=== PATIENT | female | born 1970 | race Caucasian/White ===

== ENCOUNTER → 2018-08-23 | Outpatient (CLI) | payer BC | END | disposition home or self-care (01) | LOC: WOUND 08:10 | PROVIDERS: ATTEND Nurse Practitioner Family | DX: S91.322A Laceration with foreign body, left foot, initial encounter (principal); S91.022A Laceration with foreign body, left ankle, initial encounter; S91.302A Unspecified open wound, left foot, initial encounter; M79.7 Fibromyalgia; M79.662 Pain in left lower leg; Z87.891 Personal history of nicotine dependence; Z90.710 Acquired absence of both cervix and uterus; X58.XXXA Exposure to other specified factors, initial encounter; Y93.89 Activity, other specified; Y92.89 Other specified places as the place of occurrence of the external cause; Y99.8 Other external cause status | CPT/HCPCS: 97597; 99204 ==

== ENCOUNTER 2018-08-30 08:15 | Outpatient (CLI) | payer BC | END 2018-08-30 23:59 | disposition home or self-care (01) | LOC: WOUND 08:15 | PROVIDERS: ATTEND Nurse Practitioner Family | DX: S91.322D Laceration with foreign body, left foot, subsequent encounter (principal); S91.022D Laceration with foreign body, left ankle, subsequent encounter; S91.302D Unspecified open wound, left foot, subsequent encounter; M79.7 Fibromyalgia; M79.662 Pain in left lower leg; Z87.891 Personal history of nicotine dependence; Z90.710 Acquired absence of both cervix and uterus; X58.XXXD Exposure to other specified factors, subsequent encounter | CPT/HCPCS: 97597 ==

== ENCOUNTER 2018-09-06 09:00 | Outpatient (CLI) | payer BC | END 2018-09-06 23:59 | disposition home or self-care (01) | LOC: WOUND 09:00 | PROVIDERS: ATTEND Nurse Practitioner Family | DX: S91.322D Laceration with foreign body, left foot, subsequent encounter (principal); S91.022D Laceration with foreign body, left ankle, subsequent encounter; S91.302D Unspecified open wound, left foot, subsequent encounter; M79.7 Fibromyalgia; M79.662 Pain in left lower leg; Z87.891 Personal history of nicotine dependence; Z90.710 Acquired absence of both cervix and uterus; X58.XXXD Exposure to other specified factors, subsequent encounter | CPT/HCPCS: 99213 ==

== ENCOUNTER 2019-04-03 12:24 | Emergency (ER) | payer BC ==
[~2019-04-03] VITALS: Ht 160 cm; Wt 73.0 kg
[2019-04-03 14:18] LABS: ALBUMIN 4.5 g/dL (3.4-5.0); ANION GAP 9 mmol/L (5-15); BASOPHILS # (AUTO) 0.02 x10^3/uL (0-0.1); BASOPHILS % (AUTO) 0 % (0-1); CALCIUM 9.3 mg/dL (8.5-10.1); CHLORIDE 99 mmol/L (98-107); CREATININE 0.88 mg/dL (0.55-1.02); EOSINOPHILS # (AUTO) 0.08 x10^3/uL (0-0.4); EOSINOPHILS % (AUTO) 1 % (1-7); LYMPHOCYTES # (AUTO) 1.55 x10^3/uL (1-3.4); LYMPHOCYTES % (AUTO) 20 % (22-44); MD NO; MEAN CORPUSCULAR HEMOGLOBIN 32.4 pg (27.0-34.8); MEAN CORPUSCULAR HGB CONC 33.7 g/dL (32.4-35.8); MEAN CORPUSCULAR VOLUME 96.2 fL (80-100); MEAN PLATELET VOLUME 8.5 fL (7.4-10.4); MONOCYTES % (AUTO) 10 % (2-9); NEUTROPHILS # (AUTO) 5.33 x10^3/uL (1.8-6.8); NEUTROPHILS % (AUTO) 69 % (42-75); PLATELET COUNT 291 x10^3/uL (130-400); RED BLOOD COUNT 4.11 x10^6/uL (3.82-5.3); RED CELL DISTRIBUTION WIDTH 14.6 % (9.6-15.2)
[2019-04-03 14:23] LABS: TROPONIN I < 0.015 ng/mL (0.000-0.045)
--- NOTE | 2019-04-03 14:34 | NUR ---
HISTOPATHOLOGY TECHNICIAN: PT AMBULATORY TO ROOM FROM LOBBY
--- NOTE | 2019-04-03 14:45 | NUR ---
pt in room assumed care of pt. shahla in room for eval. labs/cxr wnl. dx w/ muscle injury after skiing. vss. call long in reach. as
[2019-04-03 14:47] VITALS: BP 144/99
== END 2019-04-03 15:01 | disposition home or self-care (01) ==
LOC: ED 14:50
DX: S29.011A Strain of muscle and tendon of front wall of thorax, initial encounter (principal); F17.200 Nicotine dependence, unspecified, uncomplicated; R07.89 Other chest pain; X58.XXXA Exposure to other specified factors, initial encounter; Y93.89 Activity, other specified; Y92.89 Other specified places as the place of occurrence of the external cause; Y99.8 Other external cause status
CPT/HCPCS: 36415; 71045; 80048; 82040; 84484; 85025; 93005; 99285